=== PATIENT | female | born 1990 | race African-American/Black ===

== ENCOUNTER 2019-07-14 15:01 | Inpatient (IN) ==
[2019-07-14 15:57] LABS: Apearance,Urine CLOUDY (Clear); Blood, Urine Negative (Negative); Glucose,Urine (UA) 50 mg/dL (Negative); Granular Casts,Urine 50 /LPF (0-1); Hyaline Casts,Urine 84 /LPF (0-3); Ketones,Urine 5 mg/dL (Negative); Mucus,Urine Many /LPF (Occasional); Nitrite,Urine Negative (Negative); Protein,Urine >=500 MG/DL; Squamous Epithelial Cell,Urine Many /HPF (0-10); Transitional Epi Cells,Urine Occasional /HPF (<1); Urine Color Amber (Yellow); Urine Specific Gravity 1.033 (1.001-1.035)
[2019-07-14] MEDS ORDERED: LACTATED RINGERS 1,000 ML IV SCH ×2 (16:00→17:00)
[2019-07-14 16:01] LABS: Bilirubin,Urine Small mg/dL (Negative)
[2019-07-14] MEDS ORDERED: hydrALAZINE 20 MG/1 ML VIAL IV ONE (16:12)
[2019-07-14] MEDS ORDERED: CITRIC ACID/SODIUM CITRATE 30 ML UDCUP PO ONE (16:34)
[2019-07-14] MEDS ORDERED: ONDANSETRON 4 MG/2 ML VIAL IV PRN ×2 (16:34→18:08)
[2019-07-14] MEDS ORDERED: FAMOTIDINE 20 MG/2 ML VIAL IV ONE (16:34)
[2019-07-14] MEDS ORDERED: diphenhydrAMINE 50 MG/1 ML VIAL IV PRN (16:34)
[2019-07-14] MEDS ORDERED: HYDROmorphone 2 MG/1 ML VIAL IV PRN (16:34)
[2019-07-14] MEDS ORDERED: hydrOXYzine HCL 25 MG/1 ML VIAL IM PRN (16:34)
[2019-07-14 16:38] LABS: Basophils % 0.2 % (0.0-0.8); Eosinophils # 0.1 10*3/uL (0.0-0.87); Eosinophils % 1.2 % (0.00-10.9); Hematocrit 26.2 VOL% (35.7-47.0); Hemoglobin 7.4 GM/DL (12.0-16.0); Immature Granulocytes % 0.9 %; Immature Granulocytes Absolute 0.08 #; Lymphocytes # 2.2 10*3/uL (1.4-4.0); Lymphocytes % 24.2 % (21.3-54.2); Mean Corpuscular HGB Conc 28.2 GM/DL (32-36); Mean Corpuscular Volume 68.1 FL (87-102); Mean Platelet Volume 10.4 FL (9.6-12.0); Monocytes % 7.1 % (1.7-12.7); NRBC # 0.03 10*3/uL; Neutrophils % 66.4 % (38.7-73.9); Platelet Count 229 T/CUMM (130-400); Red Blood Count 3.85 MC/CUMM (3.8-5.5)
[2019-07-14] MEDS ORDERED: CLINDAMYCIN INJ 900 MG in PREMIX 1 EACH IV ONE (16:38)
[2019-07-14] MEDS ORDERED: MAGNESIUM SULF RIDER 4 GM in PREMIX 1 EACH IV ONE (16:41)
[2019-07-14] MEDS ORDERED: MAGNESIUM SULF RIDER 100 ML IV ONE (16:42)
[2019-07-14 16:47] LABS: INR 0.9; PT Patient Result 9.7 SECS (9.6-12.2); Partial Thromboplastin Time 27.7 SECS (20.8-36.0)
[2019-07-14] MEDS ORDERED: OXYTOCIN/LR 20 UNIT/1,000 ML BAG IV ONE ×3 (16:55→18:08)
[2019-07-14] MEDS ORDERED: METHYLERGONOVINE 0.2 MG/1 ML AMP ONE (16:55)
[2019-07-14] MEDS ORDERED: miSOPROStoL 200 MCG TABLET ONE (16:55)
[2019-07-14] MEDS ORDERED: TRANEXAMIC ACID 1,000 MG/10 ML VIAL ONE (16:55)
[2019-07-14] MEDS ORDERED: CARBOPROST TROMETHAMINE 250 MCG/ML AMP IM ONE (16:55)
[2019-07-14 16:58] LABS: Alanine Aminotransferase < 9 U/L (13-56); Albumin 1.9 G/DL (3.4-5.0); Alkaline Phosphatase 108 U/L (45-117); Aspartate Amino Transferase 18 U/L (0-37); Blood Urea Nitrogen 5 MG/DL (7-18); Calcium 8.2 MG/DL (8.5-10.1); Estimated Glom Filtration Rate 176 ML/MIN; Glucose 82 MG/DL (74-106); Osmolality,Calculated 274.4 MOS/KG (273-304); Total Protein 6.1 G/DL (6.4-8.3); Uric Acid 6.8 MG/DL (2.6-6.0)
[2019-07-14] MEDS ORDERED: MAGNESIUM SULF DRIP 40 GM/1,000 ML ML IV SCH (17:00)
[2019-07-14 17:09] LABS: Anisocytosis 1+; Hypochromasia Slight; Macrocytosis Slight; Microcytosis 1+; Polychromasia 1+
[2019-07-14 17:10] LABS: Platelet Estimate Normal
[2019-07-14] MEDS ORDERED: SUGAMMADEX 200 MG/2 ML VIAL IV ONE ×2 (17:44→18:17)
[2019-07-14] MEDS ORDERED: HYDROmorphone 2 MG/1 ML VIAL ONE (17:45)
[2019-07-14 17:52] LABS: Cord Arterial Blood HCO3 17.2 MMOL/L
[2019-07-14 17:55] LABS: Cord Venous Blood HCO3 18.3 MMOL/L; Cord Venous Blood PCO2 38.9 MMHG; Cord Venous Blood PO2 42.3
[2019-07-14] MEDS ORDERED: HYDROCORTISONE 2.5% RECTAL CREAM 30 GM TUBE TOP PRN (18:08)
[2019-07-14] MEDS ORDERED: WITCH HAZEL PADS 100/JAR TOP PRN (18:08)
[2019-07-14] MEDS ORDERED: DIPH/TET/ACEL PERT BOOSTER VACCINE 0.5 ML VIAL IM ONE (18:08)
[2019-07-14] MEDS ORDERED: BENZOCAINE 20%/MENTHOL 0.5% SPRAY 56 GM CAN TOP PRN (18:08)
[2019-07-14] MEDS ORDERED: MEASLES/MUMPS/RUBELLA VACCINE 0.5 ML VIAL SUBCUT ONE (18:08)
[2019-07-14] MEDS ORDERED: ACETAMINOPHEN 325 MG TABLET PO PRN (18:08)
[2019-07-14] MEDS ORDERED: LANOLIN 50% CREAM 0.3 OZ TUBE TOP PRN (18:08)
[2019-07-14] MEDS ORDERED: RHO(D) IMMUNE GLOBULIN 300 MCG SYRINGE IM ONE (18:08)
[2019-07-14] MEDS ORDERED: BISACODYL 10 MG SUPP RECTAL PRN (18:08)
[2019-07-14] MEDS ORDERED: oxyCODONE/ACETAMINOPHEN 5-325 MG TABLET PO PRN (18:08)
[2019-07-14] MEDS ORDERED: PHENYLEPHRINE 1 MG/10 ML SYRINGE IV ONE (18:38)
[2019-07-14] MEDS ORDERED: propofoL 200 MG/20 ML VIAL IV ONE (18:39)
[2019-07-14] MEDS ORDERED: MIDAZOLAM 2 MG/2 ML VIAL ONE (18:39)
[2019-07-14] MEDS ORDERED: fentaNYL 100 MCG/2 ML VIAL ONE (18:39)
[2019-07-14] MEDS ORDERED: SUCCINYLCHOLINE 200 MG/10 ML VIAL ONE (18:39)
[2019-07-14] MEDS ORDERED: ROCURONIUM 100 MG/10 ML VIAL IV ONE (18:40)
[2019-07-14] MEDS ORDERED: DEXTROSE 10% 250 ML BAG IV PRN (19:48)
[2019-07-14] MEDS ORDERED: GLUCAGON 1 MG VIAL IM PRN (19:48)
[2019-07-14] MEDS ORDERED: INSULIN REGULAR 100 UNIT/ML SUBCUT SCH (21:00)
[2019-07-14] MEDS: IBUPROFEN 800 MG TABLET PO PRN (21:30)
[2019-07-14] MEDS: DOCUSATE SODIUM 100 MG CAPSULE PO SCH (21:39)
[2019-07-14] MEDS: LABETALOL 200 MG TABLET PO SCH (21:40)
[2019-07-14 21:46] LABS: Hematocrit 23.2 VOL% (35.7-47.0); Hemoglobin 6.5 GM/DL (12.0-16.0)
[2019-07-14 21:47] LABS: Apearance,Urine CLEAR (Clear); Bilirubin,Urine Negative (Negative); Blood, Urine Small mg/dL (Negative); Glucose,Urine (UA) Negative (Negative); Ketones,Urine Negative (Negative); Nitrite,Urine Negative (Negative); Protein,Urine Negative; Squamous Epithelial Cell,Urine Occasional /HPF (0-10); Urine Color Yellow (Yellow); Urine Specific Gravity 1.003 (1.001-1.035); Urine Urobilinogen < 2.0 EU/DL (0.2-1.0)
[2019-07-14] MEDS ORDERED: OXYTOCIN/LR 30 UNIT/1,000 ML BAG IV ONE (22:17)
[2019-07-14] MEDS: oxyCODONE/ACETAMINOPHEN 5-325 MG TABLET PO PRN (22:25)
[2019-07-14] MEDS: miSOPROStoL 200 MCG TABLET PO SCH (22:26)
[2019-07-14] MEDS ORDERED: SODIUM CHLORIDE 0.9% 1,000 ML IV PRN (22:41)
[2019-07-15] MEDS: CLINDAMYCIN INJ 900 MG in PREMIX 1 EACH IV SCH ×2 (01:26→09:37)
[2019-07-15] MEDS: miSOPROStoL 200 MCG TABLET PO SCH ×3 (02:32→09:37)
[2019-07-15] MEDS: oxyCODONE/ACETAMINOPHEN 5-325 MG TABLET PO PRN ×2 (05:08→14:05)
[2019-07-15] MEDS: LABETALOL 200 MG TABLET PO SCH ×3 (06:04→21:59)
[2019-07-15 06:17] LABS: Basophils % 0.3 % (0.0-0.8); Eosinophils # 0.1 10*3/uL (0.0-0.87); Eosinophils % 0.7 % (0.00-10.9); Hematocrit 27.1 VOL% (35.7-47.0); Hemoglobin 8.3 GM/DL (12.0-16.0); Immature Granulocytes % 0.7 %; Immature Granulocytes Absolute 0.08 #; Lymphocytes # 2.3 10*3/uL (1.4-4.0); Lymphocytes % 19.2 % (21.3-54.2); Mean Corpuscular HGB Conc 30.6 GM/DL (32-36); Mean Corpuscular Volume 72.1 FL (87-102); Monocytes % 6.3 % (1.7-12.7); NRBC # 0.03 10*3/uL; Neutrophils % 72.8 % (38.7-73.9); Platelet Count 208 T/CUMM (130-400); Red Blood Count 3.76 MC/CUMM (3.8-5.5); Red Cell Distribution Width 21.1 % (9.3-17.3); White Blood Count 11.9 T/CUMM (4-12)
[2019-07-15] MEDS: DOCUSATE SODIUM 100 MG CAPSULE PO SCH ×2 (09:37→22:07)
[2019-07-15 09:41] LABS: Hematocrit 25.7 VOL% (35.7-47.0)
[2019-07-15] MEDS ORDERED: hydrALAZINE 20 MG/1 ML VIAL ONE (09:41)
[2019-07-15] MEDS: hydrALAZINE 20 MG/1 ML VIAL IV PRN ×2 (09:47→10:20)
[2019-07-15] MEDS ORDERED: LABETALOL 100 MG/20 ML VIAL IV PRN (10:50)
[2019-07-15 12:02] LABS: Bacteria Wet Mount Trace /HPF; Clue Cells None Seen /HPF (None Seen); Epithelial Cell Wet Mount Few /HPF (Few/HPF); RBC Wet Mount Many /HPF; Trichomonas Wet Mount Few /HPF (None Seen); WBC Wet Mount Few /HPF; Yeast Wet Mount None Seen /HPF (None Seen)
[2019-07-15 12:23] LABS: Rapid Plasma Reagin Confirm REACTIVE (Nonreactive)
[2019-07-15] MEDS ORDERED: diphenhydrAMINE 50 MG/1 ML VIAL IV PRN (19:39)
[2019-07-16] MEDS ORDERED: ZOLPIDEM 5 MG TABLET PO ONE (01:25)
[2019-07-16 05:16] LABS: Basophils % 0.1 % (0.0-0.8); Eosinophils # 0.2 10*3/uL (0.0-0.87); Eosinophils % 1.7 % (0.00-10.9); Hematocrit 22.3 VOL% (35.7-47.0); Hemoglobin 6.9 GM/DL (12.0-16.0); Immature Granulocytes % 0.7 %; Immature Granulocytes Absolute 0.07 #; Lymphocytes # 1.8 10*3/uL (1.4-4.0); Lymphocytes % 18.8 % (21.3-54.2); Mean Corpuscular HGB Conc 30.9 GM/DL (32-36); Mean Corpuscular Volume 70.3 FL (87-102); Mean Platelet Volume 10.4 FL (9.6-12.0); Monocytes % 5.4 % (1.7-12.7); Neutrophils % 73.3 % (38.7-73.9); Platelet Count 216 T/CUMM (130-400); Red Blood Count 3.17 MC/CUMM (3.8-5.5); Red Cell Distribution Width 20.6 % (9.3-17.3); White Blood Count 9.8 T/CUMM (4-12)
[2019-07-16] MEDS: LABETALOL 200 MG TABLET PO SCH ×3 (06:06→21:34)
[2019-07-16] MEDS: oxyCODONE/ACETAMINOPHEN 5-325 MG TABLET PO PRN ×2 (09:05→18:44)
[2019-07-16] MEDS: DOCUSATE SODIUM 100 MG CAPSULE PO SCH ×2 (09:06→21:15)
[2019-07-16] MEDS: metroNIDAZOLE 500 MG TABLET PO SCH ×2 (09:50→21:15)
[2019-07-16] MEDS: DOXYCYCLINE HYCLATE 100 MG CAPSULE PO SCH ×2 (09:50→21:15)
[2019-07-16] MEDS ORDERED: SODIUM CHLORIDE 0.9% 1,000 ML IV PRN (11:46)
[2019-07-16] MEDS: FERROUS SULFATE 325 MG TABLET PO SCH ×2 (14:14→21:15)
[2019-07-16] MEDS ORDERED: FUROSEMIDE 20 MG/2 ML VIAL IV ONE (14:30)
[2019-07-16] MEDS ORDERED: FUROSEMIDE 20 MG/2 ML VIAL IV PRN (21:00)
[2019-07-16] MEDS: MAGNESIUM HYDROXIDE SUSP 30 ML UDCUP PO PRN (21:34)
[2019-07-16] MEDS: SIMETHICONE CHEW 80 MG TABLET PO PRN (21:34)
[2019-07-17] MEDS: oxyCODONE/ACETAMINOPHEN 5-325 MG TABLET PO PRN ×4 (04:15→23:33)
[2019-07-17] MEDS: LABETALOL 200 MG TABLET PO SCH (05:58)
[2019-07-17 06:08] LABS: Basophils % 0.2 % (0.0-0.8); Eosinophils # 0.2 10*3/uL (0.0-0.87); Eosinophils % 1.5 % (0.00-10.9); Hematocrit 26.2 VOL% (35.7-47.0); Hemoglobin 8.4 GM/DL (12.0-16.0); Lymphocytes # 1.7 10*3/uL (1.4-4.0); Mean Corpuscular HGB Conc 32.1 GM/DL (32-36); Mean Corpuscular Volume 74.2 FL (87-102); Mean Platelet Volume 9.7 FL (9.6-12.0); Monocytes % 4.5 % (1.7-12.7); NRBC # 0.02 10*3/uL; Neutrophils % 76.8 % (38.7-73.9); Platelet Count 226 T/CUMM (130-400); Red Blood Count 3.53 MC/CUMM (3.8-5.5); Red Cell Distribution Width 22.6 % (9.3-17.3); White Blood Count 10.5 T/CUMM (4-12)
[2019-07-17 07:04] LABS: Platelet Estimate Normal; Polychromasia Few; Schistocytes Slight
[2019-07-17] MEDS: SIMETHICONE CHEW 80 MG TABLET PO PRN (09:47)
[2019-07-17] MEDS: MAGNESIUM HYDROXIDE SUSP 30 ML UDCUP PO PRN (09:47)
[2019-07-17] MEDS: DOCUSATE SODIUM 100 MG CAPSULE PO SCH ×2 (09:47→21:22)
[2019-07-17] MEDS: metroNIDAZOLE 500 MG TABLET PO SCH ×2 (09:49→21:22)
[2019-07-17] MEDS: FERROUS SULFATE 325 MG TABLET PO SCH ×3 (09:49→21:22)
[2019-07-17] MEDS: DOXYCYCLINE HYCLATE 100 MG CAPSULE PO SCH ×2 (09:49→21:22)
[2019-07-17] MEDS: LABETALOL 100 MG TABLET PO SCH ×2 (14:29→22:26)
[2019-07-17] MEDS ORDERED: FUROSEMIDE 40 MG/4 ML VIAL IV ONE (21:35)
[2019-07-18] MEDS: oxyCODONE/ACETAMINOPHEN 5-325 MG TABLET PO PRN ×2 (05:19→18:17)
[2019-07-18] MEDS: LABETALOL 100 MG TABLET PO SCH ×3 (06:14→21:50)
[2019-07-18] MEDS ORDERED: FUROSEMIDE 40 MG/4 ML VIAL IV PRN (07:31)
[2019-07-18] MEDS: FERROUS SULFATE 325 MG TABLET PO SCH ×3 (09:04→21:30)
[2019-07-18] MEDS: DOXYCYCLINE HYCLATE 100 MG CAPSULE PO SCH ×2 (09:05→21:30)
[2019-07-18] MEDS: DOCUSATE SODIUM 100 MG CAPSULE PO SCH ×2 (09:05→21:31)
[2019-07-18] MEDS: metroNIDAZOLE 500 MG TABLET PO SCH ×2 (09:05→21:30)
[2019-07-18] MEDS: FELODIPINE 2.5 MG TABLET PO SCH (09:05)
[2019-07-19] MEDS: oxyCODONE/ACETAMINOPHEN 5-325 MG TABLET PO PRN (02:30)
[2019-07-19] MEDS: LABETALOL 100 MG TABLET PO SCH (05:55)
[2019-07-19] MEDS: IBUPROFEN 800 MG TABLET PO PRN (06:25)
[2019-07-19 08:08] VITALS: BP 146/75
[2019-07-19] MEDS: DOCUSATE SODIUM 100 MG CAPSULE PO SCH (09:37)
[2019-07-19] MEDS: DOXYCYCLINE HYCLATE 100 MG CAPSULE PO SCH (09:37)
[2019-07-19] MEDS: FELODIPINE 2.5 MG TABLET PO SCH (09:37)
[2019-07-19] MEDS: FERROUS SULFATE 325 MG TABLET PO SCH (09:37)
[2019-07-19] MEDS: metroNIDAZOLE 500 MG TABLET PO SCH (09:37)
== END 2019-07-19 12:45 | disposition home or self-care (01) | DRG 540 ==
LOC: N.LDOUT 15:01 → N.LD 15:03 → N.OB 07-16 09:35
PROVIDERS: ADMIT Specialist; ATTEND Specialist
PROC: LDCSECT (ICD-10-PCS; 2019-07-14 17:10)

== ENCOUNTER 2021-08-15 13:14 | Inpatient (IN) ==
[2021-08-15 18:27] LABS: Basophils % 0.3 % (0.0-0.8); Eosinophils # 0.9 10*3/uL (0.0-0.87); Eosinophils % 7.3 % (0.00-10.9); Hematocrit 37.1 VOL% (35.7-47.0); Hemoglobin 11.1 GM/DL (12.0-16.0); Immature Granulocytes % 0.3 %; Immature Granulocytes Absolute 0.04 #; Lymphocytes # 3.8 10*3/uL (1.4-4.0); Lymphocytes % 32.1 % (21.3-54.2); Mean Corpuscular HGB Conc 29.9 GM/DL (32-36); Mean Platelet Volume 11.5 FL (9.6-12.0); Monocytes % 4.8 % (1.7-12.7); Neutrophils % 55.2 % (38.7-73.9); Platelet Count 299 T/CUMM (130-400); Red Blood Count 5.15 MC/CUMM (3.8-5.5); Red Cell Distribution Width 18.6 % (9.3-17.3); White Blood Count 11.8 T/CUMM (4-12)
[2021-08-15 20:26] LABS: PT Patient Result 11.5 SECS (10.5-12.0); Partial Thromboplastin Time 29.4 SECS (23.8-32.1)
[2021-08-15] MEDS ORDERED: ACETAMINOPHEN INJ 1,000 MG/100 ML VIAL IV ONE (20:34)
[2021-08-15] MEDS ORDERED: SUCCINYLCHOLINE 200 MG/10 ML VIAL ONE (20:34)
[2021-08-15] MEDS ORDERED: fentaNYL 100 MCG/2 ML VIAL ONE (20:34)
[2021-08-15] MEDS ORDERED: ROCURONIUM 50 MG/5 ML VIAL IV ONE (20:34)
[2021-08-15] MEDS ORDERED: DEXAMETHASONE 4 MG/1 ML VIAL ONE ×2 (20:34→21:19)
[2021-08-15] MEDS ORDERED: propofoL 200 MG/20 ML VIAL IV ONE (20:34)
[2021-08-15] MEDS ORDERED: ONDANSETRON 4 MG/2 ML VIAL ONE (20:34)
[2021-08-15] MEDS ORDERED: SEVOFLURANE 1 UNIT/15 MINUTE INH ONE ×3 (20:34→21:46)
[2021-08-15] MEDS ORDERED: LIDOCAINE 2% 5 ML VIAL ONE (20:34)
[2021-08-15 20:44] LABS: Calcium 8.6 MG/DL (8.5-10.1); Osmolality,Calculated 271.8 MOS/KG (273-304); Potassium 3.3 MMOL/L (3.5-5.1)
[2021-08-15] MEDS ORDERED: KETOROLAC 30 MG/1 ML VIAL ONE (21:17)
[2021-08-15] MEDS ORDERED: GLYCOPYRROLATE 0.4 MG/2 ML VIAL ONE (21:19)
[2021-08-15] MEDS ORDERED: NEOSTIGMINE 10 MG/10 ML VIAL ONE (21:21)
[2021-08-15] MEDS ORDERED: ACETAMINOPHEN 325 MG TABLET PO PRN ×2 (21:55→22:49)
[2021-08-15] MEDS ORDERED: IBUPROFEN 800 MG TABLET PO PRN ×2 (21:55→22:49)
[2021-08-15] MEDS ORDERED: MAGNESIUM HYDROXIDE SUSP 30 ML UDCUP PO PRN ×2 (21:55→22:49)
[2021-08-15] MEDS ORDERED: ONDANSETRON 4 MG/2 ML VIAL IV PRN ×2 (21:55→22:49)
[2021-08-15] MEDS ORDERED: BENZOCAINE/MENTHOL LOZENGE 18/BOX PO PRN ×2 (21:55→22:49)
[2021-08-15] MEDS ORDERED: LACTATED RINGERS 1,000 ML IV SCH ×2 (21:55→22:00)
[2021-08-15] MEDS ORDERED: BISACODYL 10 MG SUPP RECTAL PRN ×2 (21:55→22:49)
[2021-08-15] MEDS ORDERED: DOCUSATE SODIUM 100 MG CAPSULE PO PRN ×2 (21:55→22:49)
[2021-08-15] MEDS ORDERED: MEPERIDINE 25 MG/1 ML VIAL IV PRN (22:54)
[2021-08-15] MEDS ORDERED: KETOROLAC 30 MG/1 ML VIAL IV PRN (22:57)
[2021-08-15] MEDS ORDERED: MEPERIDINE 50 MG/1 ML VIAL ONE (22:59)
[2021-08-15] MEDS ORDERED: MEPERIDINE 50 MG/1 ML VIAL IV PRN (23:30)
[2021-08-16] MEDS ORDERED: POTASSIUM CHLORIDE 20 MEQ TABLET PO PRN (05:29)
[2021-08-16 07:13] LABS: Basophils % 0.1 % (0.0-0.8); Hemoglobin 9.6 GM/DL (12.0-16.0); Immature Granulocytes % 0.5 %; Immature Granulocytes Absolute 0.05 #; Lymphocytes # 1.1 10*3/uL (1.4-4.0); Lymphocytes % 11.6 % (21.3-54.2); Mean Corpuscular Volume 71.3 FL (87-102); Mean Platelet Volume 11.7 FL (9.6-12.0); Monocytes % 2.4 % (1.7-12.7); Neutrophils % 85.4 % (38.7-73.9); Platelet Count 300 T/CUMM (130-400); Red Blood Count 4.49 MC/CUMM (3.8-5.5); White Blood Count 9.7 T/CUMM (4-12)
[2021-08-16] MEDS ORDERED: METOCLOPRAMIDE 10 MG TABLET PO SCH (08:00)
[2021-08-16 11:36] VITALS: BP 103/55
== END 2021-08-16 13:45 | disposition home or self-care (01) | DRG 547 ==
LOC: N.ED 13:14 → N.OB 21:25
PROVIDERS: ADMIT Obstetrics & Gynecology; ATTEND Obstetrics & Gynecology

== ENCOUNTER 2021-11-19 09:55 | Observation (INO) ==
[2021-11-19] MEDS ORDERED: LACTATED RINGERS 1,000 ML IV ONE ×2 (10:25→11:25)
[2021-11-19] MEDS ORDERED: ONDANSETRON 4 MG/2 ML VIAL IV ONE (10:38)
[2021-11-19] MEDS ORDERED: SCOPOLAMINE 1.5 MG PATCH TRANSDERM ONE (10:39)
[2021-11-19 11:55] LABS: Basophils % 0.2 % (0.0-0.8); Eosinophils # 0.3 10*3/uL (0.0-0.87); Eosinophils % 3.7 % (0.00-10.9); Hematocrit 32.1 VOL% (35.7-47.0); Hemoglobin 9.8 GM/DL (12.0-16.0); Immature Granulocytes % 0.4 %; Immature Granulocytes Absolute 0.03 #; Lymphocytes % 24.1 % (21.3-54.2); Mean Corpuscular HGB Conc 30.5 GM/DL (32-36); Mean Corpuscular Volume 69.2 FL (87-102); Monocytes # 0.6 10*3/uL (0.11-0.8); Monocytes % 7.1 % (1.7-12.7); Neutrophils % 64.5 % (38.7-73.9); Platelet Count 152 T/CUMM (130-400); Red Blood Count 4.64 MC/CUMM (3.8-5.5); Red Cell Distribution Width 21.2 % (9.3-17.3); White Blood Count 8.4 T/CUMM (4-12)
[2021-11-19 12:21] LABS: Anisocytosis 1+; Hypochromia 1+; Platelet Estimate Adequate
[2021-11-19 12:22] LABS: Microcytosis 1+
[2021-11-19 12:43] LABS: Alanine Aminotransferase 13 U/L (13-56); Albumin 2.9 G/DL (3.4-5.0); Alkaline Phosphatase 52 U/L (45-117); Aspartate Amino Transferase 13 U/L (0-37); Bilirubin,Total < 0.39 MG/DL (0.20-1.00); Blood Urea Nitrogen 4 MG/DL (7-18); Calcium 8.9 MG/DL (8.5-10.1); Carbon Dioxide 23 MMOL/L (21-32); Chloride 107 MMOL/L (98-107); Estimated Glom Filtration Rate 178 ML/MIN; Glucose 77 MG/DL (74-106); Potassium 3.6 MMOL/L (3.5-5.1); Sodium 136 MMOL/L (136-145); Total Protein 6.2 G/DL (6.4-8.2)
[2021-11-19 12:47] LABS: HIV Antigen/Antibody Result Nonreactive (Nonreactive); Hepatitis B Surface Ag Quant 0.33 Index; Hepatitis B Surface Ag Result Non-Reactive (NonReactive); Rubella Antibody IgG Result Reactive (NonReactive)
[2021-11-19] MEDS: TRIAMCINOLONE 0.1% CREAM 15 GM TUBE TOP SCH (13:15)
[2021-11-19] MEDS: LACTATED RINGERS 1,000 ML IV SCH ×2 (13:28→20:16)
[2021-11-19 13:46] LABS: RPR Confirm - Less than 1 yr REACTIVE (Nonreactive)
[2021-11-19] MEDS: ONDANSETRON 4 MG/2 ML VIAL IV SCH ×2 (16:47→22:09)
[2021-11-19] MEDS: PANTOPRAZOLE 40 MG VIAL IV SCH (22:13)
[2021-11-20] MEDS: TRIAMCINOLONE 0.1% CREAM 15 GM TUBE TOP SCH ×2 (03:50→09:52)
[2021-11-20] MEDS: ONDANSETRON 4 MG/2 ML VIAL IV SCH ×2 (04:37→09:48)
[2021-11-20 07:09] VITALS: BP 121/63
[2021-11-20] MEDS: LACTATED RINGERS 1,000 ML IV SCH (09:45)
[2021-11-20] MEDS: PANTOPRAZOLE 40 MG VIAL IV SCH (09:45)
[2021-11-20] MEDS ORDERED: PANTOPRAZOLE 40 MG VIAL IV SCH (21:00)
== END 2021-11-20 12:10 | disposition home or self-care (01) ==
LOC: N.OB 09:55 → N.OBOUT 09:55 → N.OB 09:57
PROVIDERS: ADMIT Obstetrics & Gynecology; ATTEND Obstetrics & Gynecology

== ENCOUNTER 2021-11-25 11:21 | Observation (INO) ==
[2021-11-25] MEDS ORDERED: PROMETHAZINE 25 MG SUPP RECTAL PRN (12:09)
[2021-11-25] MEDS: LACTATED RINGERS 1,000 ML IV SCH ×2 (12:20→17:59)
[2021-11-25] MEDS: LABETALOL 100 MG TABLET PO SCH ×2 (13:01→22:37)
[2021-11-25] MEDS: ONDANSETRON 4 MG/2 ML VIAL IV SCH ×3 (13:05→21:09)
[2021-11-25] MEDS ORDERED: PROMETHAZINE 25 MG/1 ML VIAL IM PRN (13:16)
[2021-11-25] MEDS: ACETAMINOPHEN 325 MG TABLET PO PRN (13:47)
[2021-11-25 16:00] LABS: Albumin 2.9 G/DL (3.4-5.0); Bilirubin,Total 0.5 MG/DL (0.20-1.00); Calcium 8.6 MG/DL (8.5-10.1); Osmolality,Calculated 268.8 MOS/KG (273-304); Potassium 3.5 MMOL/L (3.5-5.1); Total Protein 6.8 G/DL (6.4-8.2)
[2021-11-25 17:33] LABS: Basophils % 0.2 % (0.0-0.8); Eosinophils # 0.2 10*3/uL (0.0-0.87); Eosinophils % 2.7 % (0.00-10.9); Hematocrit 31.8 VOL% (35.7-47.0); Hemoglobin 9.6 GM/DL (12.0-16.0); Immature Granulocytes % 0.3 %; Immature Granulocytes Absolute 0.03 #; Lymphocytes # 2.5 10*3/uL (1.4-4.0); Lymphocytes % 28.6 % (21.3-54.2); Mean Corpuscular HGB Conc 30.2 GM/DL (32-36); Mean Corpuscular Volume 69.7 FL (87-102); Mean Platelet Volume 10.7 FL (9.6-12.0); Monocytes # 0.6 10*3/uL (0.11-0.8); Monocytes % 6.8 % (1.7-12.7); Neutrophils % 61.4 % (38.7-73.9); Platelet Count 225 T/CUMM (130-400); Red Blood Count 4.56 MC/CUMM (3.8-5.5); White Blood Count 8.8 T/CUMM (4-12)
[2021-11-25 18:12] LABS: Anisocytosis 1+; Hypochromia 1+; Ovalocytes Slight; Polychromasia Slight
[2021-11-25 18:13] LABS: Platelet Estimate Adequate
[2021-11-25] MEDS ORDERED: SODIUM PHOSPHATE ENEMA 133 ML BOTTLE RECTAL PRN (20:54)
[2021-11-26] MEDS: ONDANSETRON 4 MG/2 ML VIAL IV SCH ×3 (01:15→08:43)
[2021-11-26] MEDS: LACTATED RINGERS 1,000 ML IV SCH ×3 (01:30→16:47)
[2021-11-26] MEDS ORDERED: POLYETHYLENE GLYCOL POWDER 17 GM PACK PO PRN (03:13)
[2021-11-26] MEDS: ACETAMINOPHEN 325 MG TABLET PO PRN (07:38)
[2021-11-26] MEDS: LABETALOL 100 MG TABLET PO SCH ×2 (09:15→22:28)
[2021-11-26] MEDS: PROMETHAZINE 12.5 MG SUPP RECTAL PRN ×2 (13:14→21:47)
[2021-11-26] MEDS: ONDANSETRON 4 MG/2 ML VIAL IV PRN (18:05)
[2021-11-27] MEDS: LACTATED RINGERS 1,000 ML IV SCH (00:50)
[2021-11-27] MEDS: LABETALOL 100 MG TABLET PO SCH ×2 (09:20→21:12)
[2021-11-27] MEDS: ONDANSETRON 4 MG/2 ML VIAL IV PRN (16:05)
[2021-11-27] MEDS: PROMETHAZINE 12.5 MG SUPP RECTAL PRN (22:17)
[2021-11-28] MEDS: ONDANSETRON 4 MG/2 ML VIAL IV PRN (03:39)
[2021-11-28] MEDS: LABETALOL 100 MG TABLET PO SCH (09:26)
[2021-11-28] MEDS: LACTATED RINGERS 1,000 ML IV SCH (12:42)
[2021-11-28 19:43] VITALS: BP 132/71
== END 2021-11-28 19:35 | disposition home health service (06) ==
LOC: N.OBOUT 11:21 → N.OB 11:21
PROVIDERS: ADMIT Obstetrics & Gynecology; ATTEND Obstetrics & Gynecology